=== PATIENT | male | born 1965 | race Two or more races ===

== ENCOUNTER 2024-07-03 04:09 | Emergency (ER) | payer OTHER, SELFPAY ==
[2024-07-03 04:25] VITALS: BP 197/101; PULSE 104; TEMP 36.7; O2SAT 98; BMI 42.7
--- NOTE | 2024-07-03 04:45 | ED.GENADUL1 ---
HPI HPI - General Adult General Chief complaint: Abdominal Pain Stated complaint: flank back pain Time Seen by Provider: 07/03/24 04:28 Source: patient Mode of arrival: walk-in Limitations: no limitations History of Present Illness HPI narrative: This 58-year-old male presents for evaluation of right flank pain with difficulty urinating. The patient states that he woke up Tuesday and was feeling fine. He started doing laundry and suddenly had pain in his right mid-low back that was so severe that he could not move. He thought maybe he was having a muscle spasm and took a Flexeril without significant improvement. Since that time he has been having ongoing pain in the right flank area that radiates down into the right inguinal area. He denies any chest pain or shortness of breath. He has not had a fever. He denies any nausea or vomiting. He states he has had similar symptoms in the past and they could never figure out what it was. He is on Flomax that was prescribed by his physician in [place]. He and his recently relocated to [place] from [place]. He has not establish care with a local family physician since that time. He is on spironolactone and Flomax but states he feels like he cannot urinate and is only urinating small amounts. He denies any dysuria or hematuria. He does not have a history of kidney stones. Related Data Home Medications ?Medication ?Instructions ?Recorded ?Confirmed atomoxetine 80 mg capsule mg PO 07/03/24 escitalopram oxalate 10 mg tablet mg 07/03/24 hydrochlorothiazide 25 mg tablet mg 07/03/24 losartan 100 mg tablet mg 07/03/24 magnesium 200 mg tablet 200 mg PO BID 07/03/24 07/03/24 metformin 500 mg tablet,extended mg PO 07/03/24 release 24 hr spironolactone 25 mg tablet mg 07/03/24 tamsulosin 0.4 mg capsule mg PO 07/03/24 Allergies Allergy/AdvReac Type Severity Reaction Status Date / Time No Known Drug Allergies Allergy Verified 07/03/24 04:32 Opioid HPI Opioid Management Most Recent Opioid Data: Last NOV Pain Assessment 07/03/24 04:57 Review of Systems ROS Status of ROS 10 or more systems reviewed and unremarkable except as noted in history and below PFSH PFSH Social History Little interest or pleasure in doing things: not at all Feeling down, depressed, or hopeless: not at all Exam Narrative Exam Narrative: Vital signs and Nursing Notes reviewed: Patient is afebrile, he is tachycardic with a pulse of 104 and blood pressure is elevated at 197/101, he is not hypoxic with pulse ox of 98% on room air General: Awake, alert, oriented, nontoxic but uncomfortable appearing overweight male, no respiratory distress HEENT: Normocephalic atraumatic, mucous membranes are moist and pink, eyes are clear, normal conjunctiva, vision is grossly intact Neck: Supple, no meningeal signs, no anterior or posterior cervical lymphadenopathy Chest: Lungs are clear to auscultation with good air entry, there is no wheezing rhonchi or rales appreciated no accessory muscle use, patient is speaking in complete sentences-no chest wall tenderness to palpation CVS: Regular rate and rhythm S1-S2, no murmurs rubs or gallops, pulses are brisk and equal bilaterally ABD: Obese, soft, nondistended, tenderness to palpation in the right lower flank and right lower quadrant without rebound, guarding or rigidity, bowel sounds are normal, no pulsatile masses appreciated Extremities: Moving all extremities, no lower extremity tenderness or swelling noted, negative Homans' sign, pulses are brisk and equal bilaterally Skin: Normal in appearance without rash,pallor, petechiae or purpura Neuro: No focal deficits Constitutional Vital Signs, click to edit/add: Last Vital Signs Temp 98.1 F 07/03/24 04:25 Pulse 104 H 07/03/24 04:25 Resp 20 07/03/24 04:25 BP 121/71 07/03/24 05:29 Pulse Ox 98 07/03/24 04:25 O2 Del Method Room Air 07/03/24 04:25 Course Vital Signs Vital signs: Vital Signs Temperature 98.1 F 07/03/24 04:25 Pulse Rate 104 H 07/03/24 04:25 Respiratory Rate 20 07/03/24 04:25 Blood Pressure 197/101 H 07/03/24 04:25 Pulse Oximetry 98 07/03/24 04:25 Oxygen Delivery Method Room Air 07/03/24 04:25 Temperature 98.1 F 07/03/24 04:25 Pulse Rate 104 H 07/03/24 04:25 Respiratory Rate 20 07/03/24 04:25 Blood Pressure 121/71 07/03/24 05:29 Pulse Oximetry 98 07/03/24 04:25 Oxygen Delivery Method Room Air 07/03/24 04:25 Medical Decision Making MDM Narrative Medical decision making narrative: This 58-year-old male presents for evaluation of right sided flank pain for the past 2 days. He states he woke up Tuesday morning feeling fine and then started having pain in his right flank that was so severe he could not move. He thought he was having a muscle spasm and took a muscle relaxant without significant improvement. He denies any fevers or chills. He states that he has been urinating less than normally. He is on spironolactone. He states that he does drink plenty of water. He does not have a history of kidney stones. A bladder scan was ordered and shows a very small amount of urine in his bladder. He was able to urinate a small amount that was sent to the lab. An IV was placed and he was medicated with IV Dilaudid and Zofran with clinical improvement. His initial blood pressure that was markedly elevated came down into the 120s over 70s. He was mildly tender over his right lower lumbar region and right lower quadrant of his abdomen without rebound guarding or rigidity. Femoral pulses are brisk and equal. Routine labs are ordered. He has a normal white count and hemoglobin. Electrolytes are normal. He does have a mild elevation in his creatinine at 1.4. Urine is negative for infection. CT scan of the abdomen pelvis without IV contrast was ordered and is included in the body of this report. It shows a small pulmonary nodule, splenic aneurysm, renal cyst and fatty liver. The results of the CT scan were discussed with him. He was given a copy of the report for his records. He will be referred to a local physician as he does not have a primary care physician locally since moving to this area from [place] 4 months ago. At this time it seems the symptoms are likely related to musculoskeletal pain and he will be given a prescription for [place] and Robaxin to use as needed for ongoing pain and muscle spasm. He was encouraged to drink plenty of fluids and follow-up closely with family medicine. Medical Records Medical records narrative: The [address] [address] [address] Scan Report Signed Patient: JOSE HAN MR#: [id number] : 1965 Acct:[id number] Age/Sex: 58 / M ADM Date: 07/03/24 Loc: ER Attending Dr: Ordering Physician: Kathya Zabala Date of Service: 07/03/24 Procedure(s): CT abdomen pelvis wo con Accession Number(s): [id number] cc: Physician,Non-Staff M.Traci~ [facility] [place] [id number] Patient Name: JOSE HAN MRN: [facility]:[id number] date: 1965 Sex: M Assigned Patient Location: ER Current Patient Location: ER Accession/Order Number: [id number] Exam Date: 07/03/2024 05:37 Report Date: 07/03/2024 06:02 At the request of: KATHYA ZABALA Procedure: CT abdomen pelvis wo con EXAMINATION: CT abdomen pelvis wo con HISTORY: left flank pain COMPARISON: No relevant comparison available. TECHNIQUE: Axial, Coronal, and Sagittal images were created without IV contrast. Dose reduction techniques were achieved by using automated exposure control and/or adjustment of mA and/or kV according to patient size and/or use of iterative reconstruction technique. FINDINGS: LUNG BASES: 6 mm right lower lobe nodule, axial image #2 LIVER: Diffuse hypoattenuation consistent with hepatic steatosis BILIARY: No dilatation or calcification. PANCREAS: No lesion, fluid collection, ductal dilatation, or atrophy. SPLEEN: No enlargement or focal lesion. ADRENALS: 8mm right adrenal hypodensity. Normal left KIDNEYS: 5 cm right renal cortical cyst. No hydronephrosis or obstructing nephrolithiasis BOWEL/MESENTERY: Moderate colonic diverticulosis without evidence of acute colitis. Nonobstructive bowel gas pattern. Normal appendix AORTA/VASCULAR: Mild calcific atherosclerosis. No aortic aneurysm. 1.8 cm splenic artery aneurysm RETROPERITONEUM: No mass or adenopathy. LYMPH NODES: No adenopathy. URINARY BLADDER: No visible focal wall thickening, lesion, or calculus. PELVIC ORGANS: No visible mass. Pelvic organs appropriate for patient age. ABDOMINAL WALL: No mass or hernia. BONES: No bony lesion or fracture. OTHER: Negative. CT/CT abdomen pelvis wo con IMPRESSION: No obstructive uropathy Hepatic steatosis Electronically authenticated by: JOVANNY EAST Date: 07/03/2024 06:02 Lab Data Lab results reviewed: Yes I reviewed the patient's lab results Labs: Lab Results 07/03/24 07/03/24 Range/Units 04:32 04:38 WBC 12.8 H (4.0-11.0) 10^3/uL RBC 4.99 (4.70-6.10) 10^6/uL Hgb 14.3 (14.0-18.0) g/dL Hct 42.8 (42.0-54.0) % MCV 85.8 (80.0-94.0) fL MCH 28.7 (25.9-34.0) pg MCHC 33.4 (29.9-35.2) g/dL RDW 13.0 (11.0-15.0) % Plt Count 274 (150-450) 10^3/uL MPV 9.2 L (9.5-13.5) fL Neut % (Auto) 56.0 (43.0-75.0) % Lymph % (Auto) 34.1 (20.5-60.0) % [place] % (Auto) 7.5 (1.7-12.0) % Eos % (Auto) 1.8 (0.9-7.0) % Baso % (Auto) 0.4 (0.2-2.0) % Neut # (Auto) 7.1 H (1.4-6.5) 10^3/uL Lymph # (Auto) 4.4 H (1.2-3.8) 10^3/uL [place] # (Auto) 1.0 H (0.3-0.8) 10^3/uL Eos # (Auto) 0.2 (0.0-0.7) 10^3/uL Baso # (Auto) 0.1 (0.0-0.1) 10^3/uL Abs Immat Gran (auto) 0.03 (0.00-0.03) 10^3/uL Imm/Tot Granulo (auto) 0.2 (0.0-0.5) % Sodium 138 (136-145) mmol/L Potassium 4.1 (3.5-5.1) mmol/L Chloride 101 (98-107) mmol/L Carbon Dioxide 29.2 (21.0-32.0) mmol/L Anion Gap 11.9 BUN 26.0 H (7.0-18.0) mg/dL Creatinine 1.40 H (0.70-1.30) mg/dL Est GFR ( Amer) >60 (>=60 mL/min/1.73m^2) Est GFR (Non-Af Amer) 52 L (>=60 mL/min/1.73m^2) BUN/Creatinine Ratio 18.6 Glucose 129 H (74-106) mg/dL Calcium 9.4 (8.5-10.1) mg/dL Total Bilirubin 1.2 H (0.2-1.0) mg/dL AST 36 (15-37) U/L ALT 71 H (16-63) U/L Alkaline Phosphatase 56 (46-116) U/L Total Protein 7.2 (6.4-8.2) g/dL Albumin 3.4 (3.4-5.0) g/dL Globulin 3.8 g/dL Albumin/Globulin Ratio 0.9 Urine Color Yellow (YELLOW) Urine Clarity Clear (CLEAR) Urine pH 6.0 (5.0-9.0) Ur Specific [place] 1.025 (1.005-1.025) Urine Protein Negative (NEG/TRACE) mg/dL Urine Glucose (UA) Negative (NEGATIVE) mg/dL Urine Ketones Negative (NEGATIVE) mg/dL Urine Occult Blood Negative (NEGATIVE) Urine Nitrite Negative (NEGATIVE) Urine Bilirubin Negative (NEGATIVE) Urine Urobilinogen 0.2 (0.2-1.0) EU/dL Ur Leukocyte Esterase Negative (NEGATIVE) Urine RBC 0-2 (0-2) #/HPF Urine WBC 2-5 A (NONE SEEN) #/HPF Ur Squamous Epith Cells Rare (NONE/RARE) #/LPF Ur Transition Epith Cell Rare A (NONE SEEN) #/LPF Urine Crystals None seen (None Seen) #/HPF Urine Bacteria Small A (NONE SEEN) #/HPF Urine Casts None seen (NONE SEEN) #/LPF Urine Mucus None seen (NONE SEEN) Ur Culture Indicated? Yes Discharge Plan Discharge Chief Complaint: Abdominal Pain Clinical Impression: Acute right flank pain Patient Disposition: Home, Self-Care Time of Disposition Decision: 06:32 Condition: Good Prescriptions / Home Meds: No Action spironolactone 25 mg tablet tamsulosin 0.4 mg capsule PO hydrochlorothiazide 25 mg tablet losartan 100 mg tablet metformin 500 mg tablet extended release 24 hr PO escitalopram oxalate 10 mg tablet atomoxetine 80 mg capsule PO magnesium 200 mg tablet 200 mg PO BID Print Language: [place] Instructions: Flank Pain (ED) Referrals: Physician,Non-Staff, MD [Primary Care Provider] - 1 week
[2024-07-03 04:49] LABS: Basophils Absolute Auto 0.1 10^3/uL (0.0-0.1); Basophils Percent Auto 0.4 % (0.2-2.0); Eosinophils Absolute Auto 0.2 10^3/uL (0.0-0.7); Eosinophils Percent Auto 1.8 % (0.9-7.0); Hematocrit 42.8 % (42.0-54.0); Hemoglobin 14.3 g/dL (14.0-18.0); Immature Granulocytes Abs Auto 0.03 10^3/uL (0.00-0.03); Immature Granulocytes Pct Auto 0.2 % (0.0-0.5); Lymphocytes Absolute Auto 4.4 10^3/uL (1.2-3.8); Lymphocytes Percent Auto 34.1 % (20.5-60.0); Mean Corpuscular HGB Conc 33.4 g/dL (29.9-35.2); Mean Corpuscular Hemoglobin 28.7 pg (25.9-34.0); Mean Corpuscular Volume 85.8 fL (80.0-94.0); Mean Platelet Volume 9.2 fL (9.5-13.5); Monocytes Percent Auto 7.5 % (1.7-12.0); Neutrophils Absolute Auto 7.1 10^3/uL (1.4-6.5); Platelet Count 274 10^3/uL (150-450); Red Blood Count 4.99 10^6/uL (4.70-6.10); White Blood Count 12.8 10^3/uL (4.0-11.0)
[2024-07-03 04:53] LABS: Bilirubin Urine NEGATIVE (NEGATIVE); Blood Urine NEGATIVE (NEGATIVE); Clarity Urine CLEAR (CLEAR); Color Urine YELLOW (YELLOW); Glucose Urine UA NEGATIVE (NEGATIVE); Ketones Urine NEGATIVE (NEGATIVE); Leukocyte Esterase Urine NEGATIVE (NEGATIVE); Nitrite Urine NEGATIVE (NEGATIVE); Protein Urine NEGATIVE (NEG/TRACE); Specific Gravity Urine 1.025 (1.005-1.025); Urobilinogen Urine 0.2 EU/dL (0.2-1.0)
--- NOTE | 2024-07-03 04:54 | PC.NURSE ---
Pt bladder scanned and largest amount noted to be 21mL. Physician notified.
[2024-07-03] MEDS: HYDROMORPHONE HCL 1 MG/ML CARTRIDGE IV (04:57)
[2024-07-03] MEDS: ONDANSETRON PF 4 MG/2 ML VIAL IV (04:57)
[2024-07-03 05:02] LABS: Bacteria Urine SMALL #/HPF (NONE SEEN); RBC Urine 0-2 #/HPF (0-2)
[2024-07-03 05:03] LABS: Alanine Aminotransferase 71 U/L (16-63); Albumin Globulin Ratio 0.9; Albumin Level 3.4 g/dL (3.4-5.0); Alkaline Phosphatase 56 U/L (46-116); Anion Gap 11.9; Aspartate Amino Transferase 36 U/L (15-37); BUN Creatinine Ratio 18.6; Bilirubin Total 1.2 mg/dL (0.2-1.0); Calcium 9.4 mg/dL (8.5-10.1); Carbon Dioxide 29.2 mmol/L (21.0-32.0); Chloride 101 mmol/L (98-107); Estimated GFR (African America >60 (>=60 mL/min/1.73m^2); Estimated GFR (Non-African Ame 52 (>=60 mL/min/1.73m^2); Globulin 3.8 g/dL; Glucose 129 mg/dL (74-106); Potassium 4.1 mmol/L (3.5-5.1); Sodium 138 mmol/L (136-145); Total Protein 7.2 g/dL (6.4-8.2)
[2024-07-03 05:03] LABS: Cast Seen? NONE SEEN #/LPF (NONE SEEN); Crystals Seen? None Seen #/HPF (None Seen); Mucus Urine NONE SEEN (NONE SEEN); Squamous Epithelial Cell Urine RARE #/LPF (NONE/RARE); Transitional Epi Cells Urine RARE #/LPF (NONE SEEN); Urine Culture Indicated YES
[2024-07-03 05:29] VITALS: BP 121/71
[2024-07-03 06:59] VITALS: BP 124/89
== END 2024-07-03 06:59 | disposition home or self-care (01) ==
PROVIDERS: Emergency Provider Emergency Medicine
DX: R10.9 Unspecified abdominal pain (principal); Z79.899 Other long term (current) drug therapy
CPT/HCPCS: 36415; 74176; 80053; 81001; 85025; 87086; 96374; 96375; 99284; J1171; J2405

== ENCOUNTER 2024-07-27 07:59 | Outpatient (OUT) | payer OTHER, SELFPAY ==
--- OUTSIDE RECORDS SUMMARY | 2024-07-27 08:04 | XMS_ITS | CCD ---
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 multinodular goiter Other fatigue Hematochezia Blood in stool Low testosterone in male Hepatic steatosis Other chronic nonalcoholic liver disease Weak urinary stream Slowing of urinary stream Right lower lobe pulmonary nodule Cyst of right kidney Unspecified congenital cystic kidney disease Leg cramps Cramp of limb Varicose veins of bilateral lower extremities with other complications Bilateral lower extremity edema documented in this encounter [facility] Instructions Attachments Note Date & Type Note Facility Instructions The following attachments cannot be sent through Care Everywhere.Weight Loss Tips (Turkish)High Blood Pressure ED (Turkish)Prediabetes (Turkish)Varicose veins and other vein disease in the legs (Turkish)Nonalcoholic fatty liver disease (Turkish)[facility] Purpose Family History No Family History Records FoundNo Family History Records Found Advance Directives No Advanced Directives Records FoundNo Advanced Directives Records Found Additional Source Comments (unrecognized sect ion and content) No Status Records FoundNo Status Records Found INFORMATION SOURCE (unrecogn ized section and content) DATE CREATED AUTHOR 03/22/2024 [facility] DATE CREATED AUTHOR AUTHOR'S ORGANIZ ATION 07/25/2024 [facility] Reason for Visit (unrecogniz ed section and content) Reason Comments Establish Care Care Teams (unrecognized sec tion and content) Animal Shelter Clerk Relationship Specialty Start Date End Date Pascual Coates APRN-CNP [address] [place], [place] [id number] PCP - General Nurse Practitioner 07/23/24 FOR RECORDS PERTAINING TO PATIENTS WHO ARE OR HAVE BEEN ENROLLED IN A CHEMICAL DEPENDENCY/SUBSTANCEABUSE PROGRAM, SOME INFORMATION MAY BE OMITTED. This clinical summary was aggregated from multiple sources. Caution should be exercised in using it in the provision of clinical care. This summary normalizes information from multiple sources, and as a consequence, information in this document may materially change the coding, format and clinical context of patient data. In addition, data may be omitted in some cases. CLINICAL DECISIONS SHOULD BE BASED ON THE PRIMARY CLINICAL RECORDS. [facility] [employer] [facility]. provides no warranty or guarantee of the accuracy or completeness of information in this document.
[2024-07-27 08:18] LABS: Hematocrit 41.8 % (42.0-54.0); Mean Corpuscular HGB Conc 33.5 g/dL (29.9-35.2); Mean Corpuscular Hemoglobin 29.2 pg (25.9-34.0); Mean Corpuscular Volume 87.1 fL (80.0-94.0); Mean Platelet Volume 9.1 fL (9.5-13.5); Platelet Count 313 10^3/uL (150-450); Red Cell Distribution Width 13.6 % (11.0-15.0); White Blood Count 17.4 10^3/uL (4.0-11.0)
[2024-07-27 08:28] LABS: Creatinine Urine Random 301.65 mg/dL (20.00-300.00); Microalbum Creatinine Ratio Ur 4.9 mg/g (0.0-29.9); Microalbumin Urine Random 1.5 mg/dL (<=30.0)
[2024-07-27 08:42] LABS: Band Neutrophils Absolute 0.2 10^3/uL (0.0-0.3); Eosinophils Absolute Manual 0.17 10^3/uL (0.00-0.70); Lymphocytes Absolute Manual 4.17 10^3/uL (1.20-3.80); Monocytes Absolute Manual 1.56 10^3/uL (0.30-0.80); Segmented Neut Absolute Manual 11.31 10^3/uL (1.4-6.5)
[2024-07-27 09:03] LABS: Alanine Aminotransferase 52 U/L (16-63); Albumin Level 3.9 g/dL (3.4-5.0); Alkaline Phosphatase 55 U/L (46-116); Anion Gap 16.3; Aspartate Amino Transferase 32 U/L (15-37); BUN Creatinine Ratio 20.4; Bilirubin Total 1.6 mg/dL (0.2-1.0); Calcium 9.2 mg/dL (8.5-10.1); Carbon Dioxide 26.5 mmol/L (21.0-32.0); Chloride 100 mmol/L (98-107); Chol HDL Ratio 3.9; Cholesterol 190 mg/dL (<=200); Estimated GFR (African America >60 (>=60 mL/min/1.73m^2); Estimated GFR (Non-African Ame 51 (>=60 mL/min/1.73m^2); Globulin 3.8 g/dL; Glucose 128 mg/dL (74-106); HDL Cholesterol 49 mg/dL (40-60); LDL Cholesterol Calculated 111.6 mg/dL; Magnesium 2.1 mg/dL (1.8-2.4); Potassium 3.8 mmol/L (3.5-5.1); Sodium 139 mmol/L (136-145); Total Protein 7.7 g/dL (6.4-8.2); Triglycerides 147 mg/dL (<=150); VLDL CHOLESTEROL 29.4 mg/dL
[2024-07-27 09:30] LABS: Estimated Average Glucose 143 mg/dL; Glycohemoglobin A1C 6.6 % (4.5-6.2)
[2024-07-27 09:39] LABS: Prostate Specific Antigen Scrn 2.18 ng/mL (<=4.00)
[2024-07-28 04:07] LABS: Vitamin B12 1461 pg/mL (232-1245)
[2024-07-30 22:06] LABS: Free Testosterone(Direct) 8.5 pg/mL (6.6-18.1); Testosterone 173 ng/dL (264-916)
== END 2024-07-27 08:00 | disposition home or self-care (01) ==
LOC: LAB 08:01
DX: R53.83 Other fatigue (principal); E66.813 Obesity, class 3; Z68.42 Body mass index [BMI] 45.0-49.9, adult; E66.01 Morbid (severe) obesity due to excess calories; I10 Essential (primary) hypertension; R73.03 Prediabetes; R79.89 Other specified abnormal findings of blood chemistry; R39.12 Poor urinary stream; R25.2 Cramp and spasm
CPT/HCPCS: 36415; 80053; 80061; 82043; 82570; 82607; 83036; 83735; 84402; 84403; 85007; 85027; G0103